=== PATIENT | female | born 1950 | race Caucasian/White ===

== ENCOUNTER 2016-11-02 15:24 | Emergency (ER) | payer MEDICARE, BC ==
[2014-09-29 06:25] VITALS: BMI 28.3
[~2016-11-02 15:24] MED LIST: ASPIRIN 81 MG E81 MG PO; BENADRYL25 MG PO; CARAFATE1 G PO; CELEXA10 MG PO; COREG12.5 MG PO; CRESTOR40 MG PO; DIOVAN80 MG PO; IMDUR60 MG PO; K-DUR20 MEQ PO; LASIX40 MG PO; LISINOPRIL2.5 MG PO; NITROSTAT0.4 MG; PLAVIX75 MG PO; PROTONIX40 MG PO; ULTRAM50 MG PO; XANAX0.5 MG PO; ZANTAC300 MG PO
[2016-11-02 16:23] LABS: BASOPHILS 0.3 % (0-2); EOSINOPHILS 0.9 % (0-7); HEMATOCRIT 37.4 % (36.0-48.0); HEMOGLOBIN 12.6 g/dL (12-16); LYMPHOCYTES 36.1 % (15-50); MCH 31.3 pg (26.0-34.0); MCHC 33.7 g/dL (31.0-37.0); MONOCYTES 15.9 % (2-11); NEUTROPHILS 46.8 % (40-80); PLATELET COUNT 169 10x3/uL (130-400); RBC 4.02 10x6/uL (4.00-5.40); RDW 12.8 % (11.5-14.5); WBC 3.2 10x3/uL (4.8-10.8)
[2016-11-02 16:38] LABS: ALBUMIN 3.6 g/dL (3.4-5.0); ALKALINE PHOSPHATASE 57 U/L (46-116); ALT (SGPT) 22 U/L (10-68); BILIRUBIN - TOTAL 0.51 mg/dL (0.2-1.3); CALC OSMOLALITY 281 mosm/kg (275-300); CALCIUM 8.6 mg/dL (8.5-10.1); CARBON DIOXIDE 31.3 mmol/L (21.0-32.0); CHLORIDE - SERUM 103 mmol/L (98-107); CREATININE - SERUM 1.2 mg/dL (0.6-1.3); GLUCOSE 107 mg/dL (74-106); PROTEIN - SERUM 6.9 g/dL (6.4-8.2); SODIUM 141 mmol/L (136-145); UREA NITROGEN 16 mg/dL (7-18); eGFR NON AFRICAN AMERICAN 47 mL/min (90-120)
[2016-11-02 16:50] LABS: CHOL - HDL RATIO 2.9 ratio (2.3-4.1); CHOLESTEROL, TOTAL 158 mg/dL (0-200); CKMB 0.6 U/L (0.0-3.6); CREATINE KINASE 40 UL (21-215); HDL CHOLESTEROL 55 mg/dL (32-96); LDL CHOLESTEROL 80 mg/dL (0-100); LDL-HDL RATIO 1.5 ratio (1.5-3.5); TRIGLYCERIDE 118 mg/dL (30-200)
[2016-11-02 16:51] LABS: TROPONIN-I < 0.017 ng/mL (0.000-0.060)
[2016-11-02 19:44] LABS: CKMB 0.5 U/L (0.0-3.6); CREATINE KINASE 40 UL (21-215); TROPONIN-I 0.003 ng/mL (0.000-0.060)
== END 2016-11-02 19:59 | disposition home or self-care (01) ==
LOC: D.ER 15:24
PROVIDERS: Emergency Medicine; Nurse Practitioner Acute Care
DX: I20.8 Other forms of angina pectoris (principal); Z85.41 Personal history of malignant neoplasm of cervix uteri

== ENCOUNTER → 2018-04-26 13:46 | Outpatient (CLI) | payer MEDICARE, BC ==
[2014-09-29 06:25] VITALS: BMI 28.3
== END | disposition home or self-care (01) ==
LOC: D.CT 13:46
DX: R10.9 Unspecified abdominal pain (principal)